=== PATIENT | female | born 1975 | race Caucasian/White ===

== ENCOUNTER → 2016-12-15 | Outpatient (CLI) | payer OTHER ==
[~2016-12-15] MED LIST: MIDAZOLAM 2 MG/2 ML VIAL ONE
== END ==
LOC: CIMAGING 10:55
PROVIDERS: ATTEND Nurse Practitioner
DX: N92.6 Irregular menstruation, unspecified (principal); D25.2 Subserosal leiomyoma of uterus; D25.1 Intramural leiomyoma of uterus
CPT/HCPCS: 76856-PO; J2250

== ENCOUNTER → 2016-12-30 | Outpatient (CLI) | payer OTHER | LOC: BRMIMAGING 07:43 | DX: Z12.31 Encounter for screening mammogram for malignant neoplasm of breast (principal); Z80.3 Family history of malignant neoplasm of breast | CPT/HCPCS: G0202 ==

== ENCOUNTER → 2017-04-16 | Outpatient (CLI) | payer OTHER ==
[~2017-04-16] MED LIST changes: +GADOBUTROL 10 ML VIAL IVP ONE; -MIDAZOLAM 2 MG/2 ML VIAL ONE
== END ==
LOC: FIMAGING 06:52
PROVIDERS: ATTEND Nurse Practitioner
DX: J34.1 Cyst and mucocele of nose and nasal sinus (principal); M99.71 Connective tissue and disc stenosis of intervertebral foramina of cervical region; M48.02 Spinal stenosis, cervical region; M79.601 Pain in right arm; M79.602 Pain in left arm; R20.2 Paresthesia of skin; R27.9 Unspecified lack of coordination
CPT/HCPCS: A9585